=== PATIENT | female | born 1945 | race Caucasian/White ===

== ENCOUNTER → 2017-08-06 | Outpatient (CLI) | payer MEDICARE ==
[~2017-08-06] MED LIST: BUDE6HFA IH; DILT60TA30 PO; FURO20TA4 PO; LVT.05T PO; POTA10CA43 PO
--- NOTE | 2017-08-06 18:44 | Diagnostic Imaging Report ---
INDICATION: Routine screening. Comparison is made with prior study from 08/24/2014. 2-D and 3-D bilateral screening mammography was performed with CAD. The current study was also evaluated with a Computer Aided Detection (CAD) system. FINDINGS: Both breasts are primarily involutional. Tiny circumscribed nodules are noted in both breasts. These appear stable and benign. No spiculated mass or malignant-appearing microcalcifications are seen. There are benign calcifications noted. The axillae are unremarkable. IMPRESSION: No mammographic features suspicious for malignancy are identified. ACR BI-RADS Category 2: Benign findings. Result letter will be mailed to the patient. Note: At least 10% of breast cancer is not imaged by mammography. Dictated by: Dictated on workstation # [id number]
== END ==
LOC: RAD 10:45
PROVIDERS: ATTEND Pediatrics
DX: Z12.31 Encounter for screening mammogram for malignant neoplasm of breast (principal)
CPT/HCPCS: 77067

== ENCOUNTER → 2019-01-11 | Outpatient (CLI) | payer MEDICARE ==
--- NOTE | 2019-01-11 16:01 | Diagnostic Imaging Report ---
INDICATION: Postmenopausal screening. COMPARISON: None. FINDINGS: AP lumbar spine: [BMD (g/cm2): 1.329] [T-Score: 1.1] [Z-Score: 1.6] [BMD Previous: N/A] [BMD % Change: N/A] LT Hip Neck: [BMD (g/cm2): 0.960] [T-Score: -0.6] [Z-Score: 0.5] LT Hip Total: [BMD (g/cm2):0.961] [T-Score:-0.4] [Z-Score: 0.4] [BMD Previous: N/A] [BMD % Change: N/A] RT Hip Neck: [BMD (g/cm2):0.992] [T-Score:-0.3] [Z-Score:0.7] RT Hip Total: [BMD (g/cm2):10.27] [T-score:0.2] [Z-Score:0.9] [BMD Previous:N/A] [BMD % Change:N/A] *Indicates significant change from prior examination based on 95% confidence level. World Health Organization criteria for BMD interpretation classify patients as Normal (T-score at or above -1.0), Osteopenic (T-score between -1.0 and -2.5) or Osteoporotic (T-score at or below -2.5). LIMITATIONS AND MODIFICATION: None. FRACTURE RISK (FRAX SCORE): The ten year probability of (%): Major Osteoporotic Fracture: [N/A] Hip Fracture: [N/A] IMPRESSION: 1. Normal bone mineral density. 2. Baseline examination. 3. See below National Osteoporosis Foundation guidelines on when to potentially initiate pharmacologic therapy. Based on the National Osteoporosis Foundation Guidelines, pharmacologic treatment should be initiated in any of the following, unless clinical conditions suggest otherwise: * Any patient with prior fragility fracture of the hip or vertebrae. A spine fracture indicates 5X risk for subsequent spine fracture and 2X risk for subsequent hip fracture. * Osteoporosis (T-score <-2.5). * Postmenopausal women and men age 50 and older with low bone mass/osteopenia (T-score between -1.0 and -2.5) by DXA and 10-year major osteoporotic fracture greater than 20% or a 10-year probability of hip fracture greater than 3%. These fracture risks are supplied above in the FRAX score, if applicable. * Clinician judgement and/or patient preferences may indicate treatment for people with 10-year fracture probabilities above or below these levels. Dictated by: Dictated on workstation # [id number]
== END ==
LOC: RAD 13:21
PROVIDERS: ATTEND Pediatrics
DX: Z13.820 Encounter for screening for osteoporosis (principal); Z79.51 Long term (current) use of inhaled steroids
CPT/HCPCS: 77080

== ENCOUNTER → 2019-02-01 | Outpatient (CLI) | payer MEDICARE ==
--- NOTE | 2019-02-01 14:02 | Diagnostic Imaging Report ---
EXAM: CT CHEST SCREENING WO INDICATION: 35 pack year smoking history. Quit smoking 3 months ago. COMPARISON: None. FINDINGS: Mild linear atelectasis and/or scarring in the lung bases. Calcified granuloma in the right middle lobe. No endobronchial nodules. No pleural effusion or pneumothorax. Normal heart size. No pericardial effusion. No mediastinal, hilar or axillary lymphadenopathy. The visualized upper abdominal contents are negative. No acute osseous findings. IMPRESSION: 1. No suspicious pulmonary nodule or mass. Recommend continuing annual screening with low-dose chest CT in 12 months. 2. No acute CT findings in the chest. Lung RADS category: 1. Modifier: None. Please note that the low-dose technique of this chest CT is of non-diagnostic quality. This study is only intended for lung cancer screening of high risk patients. Dictated by: Dictated on workstation # [id number]
== END ==
LOC: RAD 12:56
PROVIDERS: ATTEND Pediatrics
DX: Z12.2 Encounter for screening for malignant neoplasm of respiratory organs (principal); F17.210 Nicotine dependence, cigarettes, uncomplicated; Z79.51 Long term (current) use of inhaled steroids

== ENCOUNTER → 2019-12-09 | Outpatient (CLI) | payer MEDICARE | LOC: CARD 11:33 | PROVIDERS: ATTEND Internal Medicine Interventional Cardiology | DX: R07.2 Precordial pain (principal); G47.33 Obstructive sleep apnea (adult) (pediatric); E78.01 Familial hypercholesterolemia; I11.9 Hypertensive heart disease without heart failure; E66.01 Morbid (severe) obesity due to excess calories; J44.9 Chronic obstructive pulmonary disease, unspecified; Z87.891 Personal history of nicotine dependence | CPT/HCPCS: 93306 ==

== ENCOUNTER → 2019-12-15 | Outpatient (CLI) | payer MEDICARE ==
[~2019-12-15] VITALS: Ht 160 cm; Wt 125.0 kg
[~2019-12-15] MED LIST changes: +CATHETER FLUSH 10 ML SYR IV PRN; +REGADENOSON 0.4 MG/5 ML SYR (LEXISCAN) IV ONE
[2019-12-15 09:12] VITALS: BP 176/93
[2019-12-15 09:22] VITALS: BP 171/82
--- NOTE | 2019-12-16 16:19 | Cardiology Stress Test Report ---
Stress Test Report Type of NM Stress Test: Test Type: LEXISCAN 0.4MG/5ML Date of Procedure/Referring: Date of Procedure: Dec 15, 2019 PCP Tonia Traylor MD Admitting Physician Jean-Pierre Lobo DO Indications: Chest pain Baseline Heart Rate: 67 Baseline Blood Pressure: Blood Pressure Systolic: 171 Blood Pressure Diastolic: 82 Baseline EKG: Baseline EKG: sinus rhythm Summary & Conclusion: Summary: The patient was brought to the stress lab after informed consent was taken. Stress test was performed according to the Lexiscan protocol. 0.4 mg of IV Lexiscan was given. Low-grade exercise was performed. Baseline EKG showed sinus rhythm at 67 BPM, blood pressure 156/75 mmHg. Maximum heart rate 72 bpm and blood pressure 190/74 mmHg. Patient did not have any chest pain, arrhythmias or ST segment changes during the stress test. 10.98 mCi of Myoview were given for rest imaging and 31.1 mCi of Myoview given for stress imaging. Transient ischemic dilatation score 1.14, EF 68 percent. Normal wall motion. Normal myocardial perfusion imaging during rest and stress. Conclusion: Pharmacological stress test was negative for ischemia. Normal LV function with no wall motion abnormalities. Normal myocardial perfusion imaging during rest and stress. Tonia TRAYLOR MD Dec 16, 2019 16:19
== END ==
LOC: CARD 08:30
PROVIDERS: ATTEND Internal Medicine Interventional Cardiology
DX: J44.9 Chronic obstructive pulmonary disease, unspecified (principal); E78.01 Familial hypercholesterolemia; I10 Essential (primary) hypertension; E66.01 Morbid (severe) obesity due to excess calories; G47.33 Obstructive sleep apnea (adult) (pediatric); Z87.891 Personal history of nicotine dependence
CPT/HCPCS: 78452; 93017; A9502

== ENCOUNTER → 2020-01-02 | Outpatient (CLI) | payer MEDICARE ==
[~2020-01-02] MED LIST changes: -CATHETER FLUSH 10 ML SYR IV PRN; -REGADENOSON 0.4 MG/5 ML SYR (LEXISCAN) IV ONE
--- NOTE | 2020-01-02 11:42 | Diagnostic Imaging Report ---
INDICATION: Routine screening. Comparison is made with prior mammogram 08/06/2017 and 08/24/2014. 2-D and 3-D bilateral screening mammography was performed with CAD. Scattered fibroglandular densities are identified bilaterally. Circumscribed nodules in both breasts previously described appears stable. No dominant mass or malignant appearing microcalcifications are seen. Axillae are unremarkable. IMPRESSION: BI-RADS Category 2 No mammographic features suspicious for malignancy are identified. Dictated by: Dictated on workstation # [id number]
== END ==
LOC: RAD 11:15
PROVIDERS: ATTEND Pediatrics
DX: Z12.31 Encounter for screening mammogram for malignant neoplasm of breast (principal)
CPT/HCPCS: 77063; 77067

== ENCOUNTER → 2020-02-06 | Outpatient (CLI) | payer MEDICARE ==
--- NOTE | 2020-02-06 13:58 | Diagnostic Imaging Report ---
CT Lung Screening INDICATION: Screening for lung cancer, [id number] history of smoking, quit smoking one and half years ago. TECHNIQUE: Noncontrast, low-dose CT imaging performed according to the lung cancer screening protocol. Auto Exposure Controls were utilize during the CT exam to meet ALARA standards for radiation dose reduction. COMPARISON: February 01, 2019. FINDINGS: No significant adenopathy within chest. No aneurysmal dilatation of thoracic aorta. Mild scattered vascular calcifications, including within the coronary arteries. The heart is within normal limits in size. No significant pericardial effusion. No pleural effusion. No significant hiatal hernia. The trachea is patent. No pneumothorax. Minimal bibasilar scarring and/or atelectasis. Stable sub-4 mm right lower lobe pulmonary nodule, series 2, image 95. Stable 0.7 x 0.4 x 0.4 cm solid ovoid right lower lobe pulmonary nodule, series 2, image 140. Stable subpleural 0.5 cm right middle lobe pulmonary nodule. No new pulmonary nodules. The minimally visualized upper abdomen is unremarkable. No acute osseous abnormality with mild scattered osseous degenerative changes. IMPRESSION: Stable sub-0.6 cm pulmonary nodules as described above without new pulmonary nodule. These demonstrate a benign appearance or behavior. No acute abnormality within the chest. LUNG-RADS CATEGORY: 2: Benign appearance or behavior. Follow-up: Continued low-dose CT screening of the chest in one year. Dictated by: Dictated on workstation # [id number]
== END ==
LOC: RAD 01-04 13:15
PROVIDERS: ATTEND Pediatrics
DX: Z12.2 Encounter for screening for malignant neoplasm of respiratory organs (principal); R91.1 Solitary pulmonary nodule; F17.210 Nicotine dependence, cigarettes, uncomplicated

== ENCOUNTER → 2022-01-06 | Outpatient (CLI) | payer MEDICARE ==
[~2022-01-06] MED LIST changes: +RT-ALBUTEROL SULF 2.5 MG/3 ML PRE-MIX VIAL INH ONE
== END ==
LOC: RT 13:28
PROVIDERS: ATTEND Pediatrics
DX: J44.1 Chronic obstructive pulmonary disease with (acute) exacerbation (principal)
CPT/HCPCS: 94060; 94726; 94729

== ENCOUNTER 2022-03-10 09:42 | Day surgery (SDC) | payer MEDICARE ==
[~2022-03-10] VITALS: Ht 160 cm; Wt 127.0 kg
[~2022-03-10 09:42] MED LIST changes: +BUDE10.26 IH; +CHOL500049 PO; +DILT60TA PO; +LEVO50TA6 PO; +ROSU40TA23 PO; -RT-ALBUTEROL SULF 2.5 MG/3 ML PRE-MIX VIAL INH ONE
[2022-03-10 10:00] VITALS: BP 129/53
[2022-03-10] MEDS ORDERED: HURRICAINE EXT TUBE (BENZOCAINE) XX PRN (10:00)
[2022-03-10] MEDS ORDERED: LACTATED RINGERS 1,000 ML IV STA (10:00)
--- NOTE | 2022-03-10 10:44 | Progress Note-Pre Operative ---
Pre-Operative Progress Note Date of Available H&P: Feb 25, 2022 Date H&P Reviewed: Mar 10, 2022 Time H&P Reviewed: 10:40 History & Physical: H&P Reviewed, Patient Examed, No changes noted Pre-Operative Diagnosis: Gastritis, GERD GUSTAVO WETZEL DO Mar 10, 2022 10:44
[2022-03-10] MEDS ORDERED: KETAMINE 50 MG/5 ML SYRINGE ONE (10:51)
[2022-03-10] MEDS ORDERED: PROPOFOL INJECTION 50 ML IV ONE (10:51)
[2022-03-10 11:05] VITALS: BP 146/63
--- NOTE | 2022-03-10 11:09 | Progress Note-Post Operative ---
Post-Operative Progess Note Surgeon (s)/Fourdrinier Tender (s) Surgeon GUSTAVO WETZEL DO Fourdrinier Tender: none Pre-Operative Diagnosis Gastritis, GERD Post-Operative Diagnosis Gastritis with bleeding Hiatal hernia Procedure & Operative Findings Date of Procedure 03/10/22 Procedure Performed/Findings EGD with bx PROCEDURE NOTE: After informed consent was obtained, the patient was brought to the endoscopy suite, placed in bed in left lateral decubitus position. She was administered IV sedation by the MAIL INSERTER who then monitored vitals the entire time, heart rate, blood pressure and pulse ox and the scope was inserted down the mouth through the esophagus into the stomach. On the way down, noted some mild esophagitis, took a picture, pushed into the stomach, pushed past the antrum into the duodenum. Duodenum looked good. Pulled back and noted gastritis with some flecks of blood in the stomach. I elected to do a biopsy of the antrum and then noted a mass vs. subQ lipoma with some redness; took a picture and then did a biopsy. Next, retroflexed the scope, saw a sliding hiatal hernia, took a picture of this and then pulled the scope into the GE junction and then did a biopsy of the GE junction. Pushed the scope back into the stomach, suctioned all the air out of the stomach. At this point pulled the scope up the esophagus and out the mouth. The patient tolerated the procedure, and she recovered in endoscopy suite. Anesthesia Type IV sedation by MAIL INSERTER Estimated Blood Loss Estimated blood loss (mL): scant Specimens/Packing Specimens Removed antral bx body of stomach bx x 2 GE jxn bx GUSTAVO WETZEL DO Mar 10, 2022 11:09
[2022-03-10 11:10] VITALS: BP 145/73
--- NOTE | 2022-03-10 11:10 | Endoscopy Discharge Instruct ---
Endo Procedure/Findings Findings 1.: Gastritis 2.: Hiatal Hernia Discharge Instructions - Activity: You might feel a little sleepy until tomorrow. This is due to the medicine you received to relax you. Until tomorrow, you should: NOT drive a car, operate machinery or power tools. NOT drink any alcoholic beverages. NOT make any important decisions or sign importortant papers. Do not return to work until tomorrow, unless otherwise instructed. Resume previous activities tomorrow. Diet: Start by taking liquids. If you tolerate liquids, advance to solid food. 1.: EGD in 3 years Notify Physician - If you experience excessive bleeding, unusual abdominal pain, fever, or chest pain, contact your doctor immediately. GUSTAVO WETZEL DO Mar 10, 2022 11:10
[2022-03-10 11:24] VITALS: BP 146/63
--- NOTE | 2022-03-10 13:39 | Anesthesia-General Post-Op ---
MAC Patient Condition Mental Status/LOC: Same as Preop Cardiovascular: Satisfactory Nausea/Vomiting: Absent Respiratory: Satisfactory Pain: Controlled Complications: Absent Post Op Complications Complications None Follow Up Care/Instructions Patient Instructions None needed. Anesthesiology Discharge Order Discharge Order Patient is doing well, no complaints, stable vital signs, no apparent adverse anesthesia problems. No complications reported per nursing. TOMER GAUTHIER CRNA Mar 10, 2022 13:39
== END 2022-03-10 11:37 | disposition home or self-care (01) ==
LOC: ENDO 09:42
PROVIDERS: ATTEND Surgery
DX: K29.51 Unspecified chronic gastritis with bleeding (principal); K44.9 Diaphragmatic hernia without obstruction or gangrene; B37.81 Candidal esophagitis; K31.89 Other diseases of stomach and duodenum; G47.33 Obstructive sleep apnea (adult) (pediatric); E66.9 Obesity, unspecified; Z68.42 Body mass index [BMI] 45.0-49.9, adult; Z87.891 Personal history of nicotine dependence

== ENCOUNTER → 2022-04-10 | Outpatient (CLI) | payer MEDICARE ==
[~2022-04-10] MED LIST changes: +POTA10CA44 PO
== END ==
LOC: CARD 12:42
PROVIDERS: ATTEND Internal Medicine Critical Care Medicine
DX: I51.7 Cardiomegaly (principal); I27.23 Pulmonary hypertension due to lung diseases and hypoxia
CPT/HCPCS: 93306

== ENCOUNTER 2023-02-05 18:34 | Emergency (ER) | payer MEDICARE ==
[~2023-02-05] VITALS: Ht 157.4 cm; Wt 127.0 kg
[~2023-02-05 18:34] MED LIST changes: -POTA10CA44 PO; +POTA10CA84 PO
[2023-02-05] MEDS ORDERED: NS IV 1000 ML 1,000 ML IV STA (18:58)
[2023-02-05] MEDS ORDERED: ONDANSETRON INJECTION 4 MG/2 ML (SDV) IVP ONE (19:00)
--- NOTE | 2023-02-05 19:06 | ED Abdominal Pain ---
General Chief Complaint: Abdominal/GI Problems Stated Complaint: LOOSE STOOL, STOMACH PAIN, VOMITING, Nursing Triage Note: PT AMB TO RM 8 WITH CC OF LOWER ABD PAIN, LOOSE STOOLS, AND N/V THAT STARTED LAST NIGHT. Source of Information: Patient Exam Limitations: No Limitations History of Present Illness Date Seen by Provider: Feb 05, 2023 Time Seen by Provider: 19:03 Initial Comments Patient is a 77-year-old female presents ED abdominal pain. Abdominal pain started yesterday evening. Pain has been fairly constant. Pain seems to get worse this evening. Feels like somebody is digging into her abdomen. Located in her upper and lower abdomen. No radiation to the back. She reports nausea with one episode of vomiting of phlegm. She reports 10+ episodes of diarrhea without any blood or mucousy stools. She does take azithromycin for COPD. She does not wear oxygen at home. She does have a CPAP. History of hysterectomy and cholecystectomy. Denies of any recent travel surgeries. She denies any chest pain, shortness of breath, runny nose, sore throat, headache, dizziness. She has been taking ibuprofen without much improvement. Denies of any urinary symptoms. Allergies and Home Medications Allergies Coded Allergies: Penicillins (Verified Allergy, Unknown, Hives, 03/05/22) Patient Home Medication List Home Medication List Reviewed: Yes Budesonide/Formoterol Fumarate (Budesonide-Formoterol 160-4.5) 160 Mcg-4.5 Mcg/Actuation Hfa.aer.ad, 2 PUFF IH BID, (Reported) Entered as Reported by: PATRICIA OLIVEIRA on 03/05/22 1023 Cholecalciferol (Vitamin D3) (Vitamin D3) 1,250 Mcg (44653 Unit) Capsule, 1,250 MCG PO WEEK, (Reported) Entered as Reported by: PATRICIA OLIVEIRA on 03/05/22 1023 Diltiazem HCl (Diltiazem HCl) 60 Mg Tablet, 60 MG PO DAILY, (Reported) Entered as Reported by: PATRICIA OLIVEIRA on 03/05/22 1023 Furosemide (Furosemide) 20 Mg Tablet, 20 MG PO DAILY, (Reported) Entered as Reported by: PATRICIA OLIVEIRA on 03/05/22 1023 Levothyroxine Sodium (Levothyroxine Sodium) 50 Mcg Tablet, 50 MCG PO DAILY, (Reported) Entered as Reported by: PATRICIA OLIVEIRA on 03/05/22 1023 Ondansetron (Ondansetron Odt) 4 Mg Tab.rapdis, 4 MG SL Q4H PRN for NAUSEA/VO MITING Prescribed by: ZAIDA RUBIN on 02/05/232043 Ondansetron (Ondansetron Odt) 4 Mg Tab.rapdis, 4 MG SL Q4H PRN for NAUSEA/VOMITING Prescribed by: ZAIDA RUBIN on 02/05/23 2100 Potassium Chloride (Potassium Chloride) 10 Meq Capsule.er, 10 MEQ PO DAILY, (Reported) Entered as Reported by: PATRICIA OLIVEIRA on 03/05/22 1023 Rosuvastatin Calcium (Rosuvastatin Calcium) 40 Mg Tablet, 40 MG PO HS, (Reported) Entered as Reported by: PATRICIA OLIVEIRA on 03/05/22 1023 Review of Systems Review of Systems Constitutional: No chills, No diaphoresis EENTM: No Blurred Vision, No Double Vision, No Eye Pain Respiratory: Denies Cough, Denies Orthopnea Cardiovascular: Denies Chest Pain Gastrointestinal: Abdominal Pain, Diarrhea, Nausea, Vomiting Genitourinary: Denies Burning, Denies Discharge, Denies Drainage, Denies Frequency Musculoskeletal: No back pain, No joint pain All Other Systems Reviewed Negative Unless Noted: Yes Past Mphkekm-Dbihgi-Ahhlzj Hx Patient Social History Tobacco Use?: No Smoking Status: Former Smoker Substance use?: No Alcohol Use?: Yes Alcohol Frequency: Once in a while Immunizations Up To Date First/Initial COVID19 Vaccinat: YES Second COVID19 Vaccination Rj: YES Third COVID19 Vaccination Date: YES Seasonal Allergies Seasonal Allergies: Yes Past Medical History Surgery/Hospitalization HX: HTN, COPD, TONSILECTOMY, GALLBLADDER,HYSTERECTOMY Surgeries: Yes Gallbladder, Hysterectomy, Tonsillectomy Respiratory: Yes Sleep Apnea, COPD Currently Using CPAP: Yes Cardiac: No Neurological: No Genitourinary: No Gastrointestinal: Yes Gastroesophageal Reflux Musculoskeletal: Yes Arthritis Endocrine: Yes Hypothyroidsim HEENT: Yes (CATARACT SX, UPPER DENTURE) Cancer: No Psychosocial: No Integumentary: No Blood Disorders: No Physical Exam Vital Signs Vital Signs - First Documented 02/05/23 18:46 Temp 37.4 Pulse 93 B/P (MAP) 151/115 (127) Pulse Ox 87 O2 Delivery Nasal Cannula O2 Flow Rate 2.00 Capillary Refill : Height/Weight/BMI Height: 5'3.00" Weight: 250lbs. oz. 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, no motor/sensory deficits, alert, normal mood/affect, oriented x 3 Skin: normal color, warm/dry Progress/Results/Core Measures Results/Orders Lab Results Laboratory Tests Test 02/05/23 18:46 02/05/23 18:55 02/05/23 20:00 Range/Units Influenza Type A (RT-PCR) Not Detected Not Detecte Influenza Type B (RT-PCR) Not Detected Not Detecte SARS-CoV-2 RNA (RT-PCR) Not Detected Not Detecte White Blood Count 12.7 H 4.3-11.0 10^3/uL Red Blood Count 4.94 3.80-5.11 10^6/uL Hemoglobin 14.9 11.5-16.0 g/dL Hematocrit 45 35-52 % Mean Corpuscular Volume 91 80-99 fL Mean Corpuscular Hemoglobin 30 25-34 pg Mean Corpuscular Hemoglobin Concent 33 32-36 g/dL Red Cell Distribution Width 13.3 10.0-14.5 % Platelet Count 212 130-400 10^3/uL Mean Platelet Volume 9.8 9.0-12.2 fL Immature Granulocyte % (Auto) 0 % Neutrophils (%) (Auto) 92 H 42-75 % Lymphocytes (%) (Auto) 3 L 12-44 % Monocytes (%) (Auto) 3 0-12 % Eosinophils (%) (Auto) 1 0-10 % Basophils (%) (Auto) 0 0-10 % Neutrophils # (Auto) 11.7 H 1.8-7.8 10^3/uL Lymphocytes # (Auto) 0.4 L 1.0-4.0 10^3/uL Monocytes # (Auto) 0.4 0.0-1.0 10^3/uL Eosinophils # (Auto) 0.2 0.0-0.3 10^3/uL Basophils # (Auto) 0.0 0.0-0.1 10^3/uL Immature Granulocyte # (Auto) 0.0 0.0-0.1 10^3/uL Neutrophils % (Manual) 91 % Lymphocytes % (Manual) 3 % Eosinophils % (Manual) 1 % Blood Morphology Comment NORMAL Sodium Level 138 135-145 MMOL/L Potassium Level 3.9 3.6-5.0 MMOL/L Chloride Level 104 98-107 MMOL/L Carbon Dioxide Level 23 21-32 MMOL/L Anion Gap 11 5-14 MMOL/L Blood Urea Nitrogen 16 7-18 MG/DL Creatinine 0.81 0.60-1.30 MG/DL Estimat Glomerular Filtration Rate 75 BUN/Creatinine Ratio 20 Glucose Level 132 H 70-105 MG/DL Calcium Level 8.4 L 8.5-10.1 MG/DL Corrected Calcium 8.3 L 8.5-10.1 MG/DL Total Bilirubin 0.7 0.1-1.0 MG/DL Aspartate Amino Transf (AST/SGOT) 20 5-34 U/L Alanine Aminotransferase (ALT/SGPT) 24 0-55 U/L Alkaline Phosphatase 79 40-136 U/L Total Protein 7.3 6.4-8.2 GM/DL Albumin 4.1 3.2-4.5 GM/DL Lipase 16 8-78 U/L Urine Color YELLOW Urine Clarity CLEAR Urine pH 5.5 5-9 Urine Specific [place] <=1.005 1.016-1.022 Urine Protein NEGATIVE NEGATIVE Urine Glucose (UA) NEGATIVE NEGATIVE Urine Ketones NEGATIVE NEGATIVE Urine Nitrite NEGATIVE NEGATIVE Urine Bilirubin NEGATIVE NEGATIVE Urine Urobilinogen 0.2 < = 1.0 MG/DL Urine Leukocyte Esterase NEGATIVE NEGATIVE Urine RBC (Auto) NEGATIVE NEGATIVE Urine RBC NONE /HPF Urine WBC 0-2 /HPF Urine Squamous Epithelial Cells 10-25 H /HPF Urine Crystals NONE /LPF Urine Bacteria FEW H /HPF Urine Casts NONE /LPF Urine Mucus NEGATIVE /LPF Urine Culture Indicated NO My Orders Orders - CRUZITO BARBOUR PA Ua Culture If Indicated (02/05/23 18:52) Covid 19 Inhouse Test (02/05/23 18:58) Influenza A And B By Pcr (02/05/23 18:58) Cbc And Automated Diff (02/05/23 18:58) Comprehensive Metabolic Panel (02/05/23 18:58) Lipase (02/05/23 18:58) Ns Iv 1000 Ml (Ns Iv 1000 Ml) (02/05/23 18:58) Ondansetron Injection (Ondansetron Inj (02/05/23 19:00) Manual Differential (02/05/23 18:55) Ct Abdomen/Pelvis W (02/05/23 19:26) Iohexol Injection (Omnipaque 350 Mg/Ml 1 (02/05/23 20:00) Ns (Ivpb) 100 Ml (Sodium Chloride 0.9% 1 (02/05/23 20:00) Rx-Ondansetron Po (Rx-Zofran Po) (02/05/23 21:00) Medications Given in ED Vital Signs/I&O 02/05/23 02/05/23 02/05/23 18:46 18:46 20:53 Temp 37.4 Pulse 93 69 B/P (MAP) 151/115 (127) 151/91 Pulse Ox 87 93 O2 Delivery Nasal Cannula Room Air Room Air O2 Flow Rate 2.00 02/05/23 23:59 Intake Total 1000 ml Balance 1000 ml Blood Pressure Mean: 127 Departure Communication (PCP) History of COPD who presents to ED with abdominal pain diarrhea nausea vomiting. Symptoms started last night. Has not been able to eat. History of cholecystectomy hysterectomy. Patient with generalized abdominal tenderness worse to left lower quadrant. Differential diagnosis, diverticulitis, colitis, gastroenteritis, viral syndrome, dehydration. She does take azithromycin according to patient for her COPD. She is on current medication and nebulizer treatments for copd. She does wear CPAP at night. Oxygen level was in the lower 90s. Did place 2 L for more comfort as she did drop down into the upper 80s. She does have a history of oxygen as low as 88 and potentially lower at home with exertion. She denies any chest pain shortness of breath or wheezing at this time. Patient vital signs otherwise stable. She is afebrile. CBC, CMP, lipase, urinalysis. She received a liter of fluid and was given Zofran for nausea. No bloody or mucousy stools. Denies of any odor. No recent travels. CBC shows slight elevated white blood count of 12. Chemistry was otherwise grossly unremarkable. COVID influenza was negative. Urinalysis negative for infection. CT abdomen and pelvis was ordered which did not note any acute abnormality. Diverticulosis noted. Right renal cyst. Small bilateral adrenal nodules recommended outpatient nonemergent MRI. Patient symptoms continue to be improving. No vomiting or diarrhea here. Oxygen was removed she remained in the lower 90s but did have episodes where she went into the upper 80s. She did not want any breathing treatments at this time. I concerned that her oxygen may be dropping as low as 87% at home. I do think patient would likely qualify for oxygen and this needs to be revisited. Suggest contacting her primary care physician tomorrow to discuss this. I suspect that this is likely more viral in nature. Recommend continue with oral hydration at home. Will discharge with Zofran. If any worsening pain fever bloody mucousy stools return back to ED. Impression Primary Impression: Abdominal pain Disposition: HOME, SELF-CARE Condition: Stable Departure-Patient Inst. Decision time for Depature: 20:15 Referrals: YVETTE LUI MD (PCP/Family) Primary Care Physician Patient Instructions: Diarrhea in adolescents and adults Add. Discharge Instructions: Recommend staying hydrated with Pedialyte and fluids. Alternate Tylenol ibuprofen for pain. Zofran for nausea. Recommend follow-up your PCP for further evaluation for hypoxia and symptoms today. If any worsening symptoms return back to ED. All discharge instructions reviewed with patient and/or family. Voiced understanding. Scripts Ondansetron (Ondansetron Odt) 4 Mg Tab.rapdis 4 MG SL Q4H PRN for NAUSEA/VOMITING, #8 TAB Prov: CRUZITO BARBOUR 02/05/23 Ondansetron (Ondansetron Odt) 4 Mg Tab.rapdis 4 MG SL Q4H PRN for NAUSEA/VOMITING, #4 TAB Prov: CRUZITO BARBOUR 02/05/23 CRUZITO BARBOUR Feb 05, 2023 19:06
[2023-02-05 19:07] LABS: BASOPHILS % (AUTO) 0 % (0-10); EOSINOPHILS # (AUTO) 0.2 10^3/uL (0.0-0.3); EOSINOPHILS % (AUTO) 1 % (0-10); HEMATOCRIT 45 % (35-52); HEMOGLOBIN 14.9 g/dL (11.5-16.0); LYMPHOCYTES # (AUTO) 0.4 10^3/uL (1.0-4.0); LYMPHOCYTES % (AUTO) 3 % (12-44); MEAN CORPUSCULAR HEMOGLOBIN 30 pg (25-34); MEAN CORPUSCULAR HGB CONC 33 g/dL (32-36); MEAN CORPUSCULAR VOLUME 91 fL (80-99); MEAN PLATELET VOLUME 9.8 fL (9.0-12.2); MONOCYTES # (AUTO) 0.4 10^3/uL (0.0-1.0); MONOCYTES % (AUTO) 3 % (0-12); NEUTROPHILS # (AUTO) 11.7 10^3/uL (1.8-7.8); NEUTROPHILS % (AUTO) 92 % (42-75); PLATELET COUNT 212 10^3/uL (130-400); WHITE BLOOD COUNT 12.7 10^3/uL (4.3-11.0)
[2023-02-05 19:23] LABS: ALBUMIN 4.1 GM/DL (3.2-4.5); POTASSIUM 3.9 MMOL/L (3.6-5.0)
[2023-02-05 19:24] LABS: CALCIUM 8.4 MG/DL (8.5-10.1)
[2023-02-05 19:25] LABS: TOTAL PROTEIN 7.3 GM/DL (6.4-8.2)
[2023-02-05 19:27] LABS: BILIRUBIN,TOTAL 0.7 MG/DL (0.1-1.0)
[2023-02-05 19:29] LABS: CREATININE SERUM 0.81 MG/DL (0.60-1.30)
[2023-02-05 19:56] LABS: EOSINOPHILS % (MANUAL) 1 %; LYMPHOCYTES % (MANUAL) 3 %; NEUTROPHILS % (MANUAL) 91 %; RBC MORPH NORMAL
[2023-02-05] MEDS ORDERED: IOHEXOL 350 MG/ML 100 ML (OMNIPAQUE 350) VIAL IV ONE (20:00)
[2023-02-05] MEDS ORDERED: NS 100 ML (IVPB) BAG IV ONE (20:00)
--- NOTE | 2023-02-05 20:01 | Diagnostic Imaging Report ---
PROCEDURE: CT abdomen and pelvis with contrast. TECHNIQUE: Multiple contiguous axial images were obtained through the abdomen and pelvis after administration of intravenous contrast. Auto Exposure Controls were utilized during the CT exam to meet ALARA standards for radiation dose reduction. All CT scans use one or more of the following dose optimizing techniques: automated exposure control, MA and/or KvP adjustment based on patient size and exam type or iterative reconstruction. INDICATION: Left lower quadrant abdominal pain. COMPARISON: None. FINDINGS: There is mild scarring at the lung bases. The heart is normal in size. The liver demonstrates no focal lesion. There may be some fat infiltration. Cholecystectomy clips are noted. The spleen appears normal. The pancreas is unremarkable. The adrenal glands demonstrate a small 1.2 cm nodule on the right and a small 1.2 cm nodule on the left. The kidneys demonstrate no enhancing mass and no hydronephrosis. There are cysts in the right kidney including a large cyst measuring up to 11 cm. The bowel loops are nondistended without obstruction. There is diverticulosis in the descending and sigmoid colon without diverticulitis. The appendix is normal. No free fluid or free air is seen. The aorta is normal in caliber. There is mild atherosclerosis. No lymphadenopathy is seen. No acute osseous abnormality is seen. There are degenerative changes in the spine. IMPRESSION: 1. Colonic diverticulosis without diverticulitis. 2. Large simple appearing right renal cyst. 3. Small bilateral adrenal nodules, most likely adenomas. Consider nonemergent follow-up with CT or MRI using adrenal mass protocol. Dictated by: Dictated on workstation # [id number]
[2023-02-05 20:15] LABS: CLARITY,URINE CLEAR; COLOR,URINE YELLOW; GLUCOSE, URINE (UA) NEGATIVE (NEGATIVE); KETONES,URINE NEGATIVE (NEGATIVE); PH,URINE 5.5 (5-9); PROTEIN,URINE NEGATIVE (NEGATIVE)
[2023-02-05 20:16] LABS: BACTERIA,URINE FEW /HPF; BILIRUBIN,URINE NEGATIVE (NEGATIVE); LEUKOCYTE ESTERASE ,URINE NEGATIVE (NEGATIVE); NITRITE,URINE NEGATIVE (NEGATIVE); WBC,URINE 0-2 /HPF
[2023-02-05] MEDS ORDERED: ONDA4TAB11 SL ×2 (20:44→21:00)
[2023-02-05 20:53] VITALS: BP 151/91
[2023-02-05] MEDS ORDERED: RX-ONDANSETRON 4 MG ODT (ZOFRAN) PPK #4 PO ONE (21:00)
== END 2023-02-05 20:58 | disposition home or self-care (01) ==
LOC: EDUNIT# 18:34 → ER 18:37
DX: R10.30 Lower abdominal pain, unspecified (principal); R10.10 Upper abdominal pain, unspecified; R11.2 Nausea with vomiting, unspecified; G47.30 Sleep apnea, unspecified; Z90.49 Acquired absence of other specified parts of digestive tract; Z87.891 Personal history of nicotine dependence; Z99.89 Dependence on other enabling machines and devices
CPT/HCPCS: 36415; 74177; 80053; 81000; 83690; 85007; 85027; 87636; 96361; 96374